=== PATIENT | male | born 1940 | race Caucasian/White ===

== ENCOUNTER → 2016-11-09 | Outpatient (CLI) | payer MEDICARE, BC | LOC: GMAB 10:38 | PROVIDERS: ATTEND Family Medicine | DX: I10 Essential (primary) hypertension (principal); Z12.5 Encounter for screening for malignant neoplasm of prostate | CPT/HCPCS: 84443; G0103 ==

== ENCOUNTER → 2016-12-17 | Outpatient (CLI) | payer MEDICARE, BC | END | disposition home or self-care (01) | LOC: GMAB 10:45 | PROVIDERS: ATTEND Family Medicine | DX: R94.6 Abnormal results of thyroid function studies (principal) ==

== ENCOUNTER → 2017-06-11 | Outpatient (CLI) | payer MEDICARE, BC ==
--- NOTE | 2017-06-14 08:53 | US ---
EXAM DESCRIPTION: Thyroid CLINICAL HISTORY: 76 years Male, NODULES COMPARISON: None. FINDINGS: The right thyroid lobe measures 4.7 cm in length. It is of diffusely heterogeneous internal echogenicity and contains a solid hyperechoic 2.9 cm nodule in its inferior pole with a few tiny internal calcifications. There is a second 9 mm hyperechoic solid nodule in the superior pole of the right thyroid lobe. Neither nodule demonstrates peripheral hypervascularity. The thyroid isthmus is not thickened. The left thyroid lobe measures 4.1 cm in length and is of fairly homogenous internal echogenicity. It contains a 1.8 cm solid isoechoic nodule in its inferior pole without internal calcification or peripheral hypervascularity. IMPRESSION: Bilateral solid thyroid nodules, the largest measuring 2.9 cm diameter in the inferior pole of the right thyroid lobe. Ultrasound-guided biopsy should be considered. At a minimum, short-term follow-up ultrasound is recommended to document stability Electronically signed by: Jamari Prince MD 06/14/2017 8:52 AM CDT Workstation: [id number]
== END | disposition home or self-care (01) ==
LOC: US 13:40
PROVIDERS: ATTEND Family Medicine
DX: E04.1 Nontoxic single thyroid nodule (principal)

== ENCOUNTER → 2017-11-16 | Outpatient (CLI) | payer MEDICARE, BC | END | disposition home or self-care (01) | LOC: GMAB 10:06 | PROVIDERS: ATTEND Family Medicine | DX: Z12.5 Encounter for screening for malignant neoplasm of prostate (principal); I10 Essential (primary) hypertension; E11.9 Type 2 diabetes mellitus without complications | CPT/HCPCS: 84443; G0103 ==

== ENCOUNTER → 2017-11-25 | Outpatient (CLI) | payer MEDICARE, BC | LOC: GMAB 11:29 | PROVIDERS: ATTEND Family Medicine | DX: E04.1 Nontoxic single thyroid nodule (principal) ==

== ENCOUNTER → 2018-04-12 | Outpatient (CLI) | payer MEDICARE | LOC: GMAB 16:39 | PROVIDERS: ATTEND Family Medicine | DX: E04.1 Nontoxic single thyroid nodule (principal) ==

== ENCOUNTER → 2019-01-19 | Outpatient (CLI) | payer MEDICARE | LOC: GMAE 14:17 | PROVIDERS: ATTEND Family Medicine | DX: R41.9 Unspecified symptoms and signs involving cognitive functions and awareness (principal); E04.1 Nontoxic single thyroid nodule; Z12.5 Encounter for screening for malignant neoplasm of prostate | CPT/HCPCS: 82607; 84439; 84443; 84481; G0103 ==

== ENCOUNTER → 2019-07-24 | Outpatient (CLI) | payer MEDICARE | LOC: GMAE 14:19 | PROVIDERS: ATTEND Family Medicine | DX: E53.8 Deficiency of other specified B group vitamins (principal); E03.9 Hypothyroidism, unspecified; E11.9 Type 2 diabetes mellitus without complications ==

== ENCOUNTER → 2019-11-22 | Outpatient (CLI) | payer MEDICARE | LOC: GMAE 14:28 | PROVIDERS: ATTEND Family Medicine | DX: E53.8 Deficiency of other specified B group vitamins (principal) ==